=== PATIENT | male | born 1950 | race Caucasian/White ===

== ENCOUNTER 2022-04-13 05:15 | Emergency (ER) | payer MEDICARE, MEDICAID ==
[2022-04-13] MEDS: Lidocaine 1% 10 ML MDV INJECT ONE (05:49)
== END 2022-04-13 07:10 | disposition home or self-care (01) ==
LOC: VM.ED 05:15
DX: S01.81XA Laceration without foreign body of other part of head, initial encounter (principal); I13.0 Hypertensive heart and chronic kidney disease with heart failure and stage 1 through stage 4 chronic kidney disease, or unspecified chronic kidney disease; N18.9 Chronic kidney disease, unspecified; I50.9 Heart failure, unspecified; E78.00 Pure hypercholesterolemia, unspecified; Z79.899 Other long term (current) drug therapy; Z79.82 Long term (current) use of aspirin; W18.30XA Fall on same level, unspecified, initial encounter; Y92.002 Bathroom of unspecified non-institutional (private) residence as the place of occurrence of the external cause
CPT/HCPCS: 12015; 99282; 99284

== ENCOUNTER 2023-09-20 04:50 | Emergency (ER) | payer MEDICARE, MEDICAID ==
[2023-09-20] MEDS ORDERED: Sodium Chloride 0.9% 10 ML Syringe FLUSH PRN (05:15)
[2023-09-20 05:41] LABS: BASOPHILS PERCENT AUTO 0.2 % (0.2-1.2); EOSINOPHILS ABSOLUTE AUTO 0.2 x10^3/uL (0.0-0.5); EOSINOPHILS PERCENT AUTO 2.9 % (0.0-4.0); HEMOGLOBIN 14.3 g/dL (14.0-18.0); IMMATURE GRAN ABSOLUTE AUTO 0.01 x10^3/uL (0.00-0.07); LYMPHOCYTES ABSOLUTE AUTO 0.7 x10^3/uL (1.0-4.8); LYMPHOCYTES PERCENT AUTO 12.3 % (25.0-50.0); MEAN CORPUSCULAR HEMOGLOBIN 29.7 pg (26.0-32.0); MEAN CORPUSCULAR VOLUME 87.3 fL (78.0-93.0); MONOCYTES ABSOLUTE AUTO 0.7 x10^3/uL (0.0-0.8); MONOCYTES PERCENT AUTO 13.2 % (2.0-11.0); NEUTROPHILS PERCENT AUTO 71.2 % (50.0-80.0); PLATELET COUNT,PLT 147 x10^3/uL (130-400); RED BLOOD CELL COUNT 4.81 x10^6/uL (4.5-6.0); WHITE BLOOD CELL COUNT,WBC 5.6 x10^3/uL (4.0-10.0)
[2023-09-20 06:06] LABS: LACTIC ACID 1.2 mmol/L (0.4-2.0)
[2023-09-20 06:08] LABS: A/G RATIO 0.75; ALANINE AMINOTRANSFERASE,ALT 17 U/L (16-63); ALKALINE PHOSPHATASE 123 U/L (46-116); ASPARTATE AMNIOTRANSFERASE,AST 22 U/L (15-37); BILIRUBIN TOTAL 0.8 mg/dL (0.2-1.0); BLOOD UREA NITROGEN,BUN 15 mg/dL (7-18); CALCIUM 8.7 mg/dL (8.5-10.1); CARBON DIOXIDE,CO2 29 mmol/L (21-32); CHLORIDE,CL 101 mmol/L (98-107); CREATININE 1.3 mg/dL (0.70-1.30); GLUCOSE RANDOM 107 mg/dL (70-99); POTASSIUM,K 4.2 mmol/L (3.5-5.1); PRO B-TYPE NATRIUR PEPT,BNPPRO 1614 pg/mL (<=125); SODIUM,NA 138 mmol/L (136-145)
[2023-09-20 06:09] LABS: ANION GAP 12.2 mmol/L (5-15); ESTIMATED GFR 59 mL/min (>=60)
[2023-09-20 06:11] LABS: CORONAVIRUS COVID-19 NAA NEGATIVE (NEGATIVE)
[2023-09-20 06:12] LABS: INFLUENZA A NAA NEGATIVE (NEGATIVE); INFLUENZA B NAA NEGATIVE (NEGATIVE)
== END 2023-09-20 07:46 | disposition short-term general hospital (02) ==
LOC: VM.ED 04:50
DX: I13.0 Hypertensive heart and chronic kidney disease with heart failure and stage 1 through stage 4 chronic kidney disease, or unspecified chronic kidney disease (principal); I50.9 Heart failure, unspecified; N18.9 Chronic kidney disease, unspecified; J90 Pleural effusion, not elsewhere classified; R09.02 Hypoxemia; Z79.82 Long term (current) use of aspirin; Z79.899 Other long term (current) drug therapy; Z86.73 Personal history of transient ischemic attack (TIA), and cerebral infarction without residual deficits
CPT/HCPCS: 0240U; 36415; 71045; 80053; 83605; 83880; 84484; 85025; 94760; 99285; 99284

== ENCOUNTER 2025-01-24 09:16 | Emergency (ER) | payer MEDICARE, MEDICAID | END 2025-01-24 12:40 | LOC: VM.ED 09:16 | DX: M25.531 Pain in right wrist (principal); I11.0 Hypertensive heart disease with heart failure; I50.9 Heart failure, unspecified; E78.00 Pure hypercholesterolemia, unspecified; Z79.82 Long term (current) use of aspirin; Z79.899 Other long term (current) drug therapy | CPT/HCPCS: 73110-RT; 99284; 99285 ==

== ENCOUNTER 2025-03-15 15:34 | Inpatient (IN) | payer MEDICARE, MEDICAID ==
[2025-03-15] MEDS ORDERED: Ondansetron 4 MG/2 ML SDV IV PRN (16:07)
[2025-03-15] MEDS: Lactated Ringers 1,000 ML IV SCH ×2 (16:19→17:19)
[2025-03-16 06:18] LABS: APPEARANCE,URINE CLOUDY (CLEAR); GLUCOSE,URINE NEGATIVE (NEGATIVE); OCCULT BLOOD,URINE MODERATE (NEGATIVE)
[2025-03-16 06:46] LABS: BASOPHILS ABSOLUTE AUTO 0.0 x10^3/uL (0.0-0.2); BASOPHILS PERCENT AUTO 0.1 % (0.2-1.2); EOSINOPHILS ABSOLUTE AUTO 0.0 x10^3/uL (0.0-0.5); EOSINOPHILS PERCENT AUTO 0.3 % (0.0-4.0); IMMATURE GRAN ABSOLUTE AUTO 0.09 x10^3/uL (0.00-0.07); IMMATURE GRAN PERCENT AUTO 0.60 % (0.00-0.43); LYMPHOCYTES ABSOLUTE AUTO 0.7 x10^3/uL (1.0-4.8); LYMPHOCYTES PERCENT AUTO 4.7 % (25.0-50.0); MONOCYTES ABSOLUTE AUTO 1.2 x10^3/uL (0.0-0.8); MONOCYTES PERCENT AUTO 8.1 % (2.0-11.0); NEUTROPHILS ABSOLUTE AUTO 12.7 x10^3/uL (1.8-7.7); NEUTROPHILS PERCENT AUTO 86.2 % (50.0-80.0); PLATELET COUNT,PLT 162 x10^3/uL (130-400); RED BLOOD CELL COUNT 3.78 x10^6/uL (4.5-6.0); WHITE BLOOD CELL COUNT,WBC 14.8 x10^3/uL (4.0-10.0)
[2025-03-16 07:02] LABS: BLOOD UREA NITROGEN,BUN 27.0 mg/dL (7-18); CARBON DIOXIDE,CO2 29.0 mmol/L (21-32); CHLORIDE,CL 97.0 mmol/L (98-107); CREATININE 1.4 mg/dL (0.70-1.30); EST CRCL DRUG DOSING (CG) 51.58 mL/min; GLUCOSE RANDOM 99.0 mg/dL (70-99); POTASSIUM,K 3.6 mmol/L (3.5-5.1); SODIUM,NA 134.0 mmol/L (136-145)
[2025-03-16 07:03] LABS: ESTIMATED GFR 53.0 mL/min (>=60)
[2025-03-16 07:19] LABS: TSH ULTRASENSITIVE 1.182 uIU/mL (0.358-3.74)
[2025-03-16] MEDS: FLU (Fluad Triv) 25-26 (65UP)/MF59C/PF 45 MCG/0.5 ML Syringe IM ONE (08:58)
[2025-03-16] MEDS: Diltiazem 50 MG/10 ML SDV IVPUSH ONE (19:21)
[2025-03-16] MEDS: Miconazole 2% Top Powder 45 GM Container TOP SCH (20:06)
[2025-03-17 06:56] LABS: BASOPHILS ABSOLUTE AUTO 0.0 x10^3/uL (0.0-0.2); BASOPHILS PERCENT AUTO 0.3 % (0.2-1.2); EOSINOPHILS ABSOLUTE AUTO 0.3 x10^3/uL (0.0-0.5); EOSINOPHILS PERCENT AUTO 3.0 % (0.0-4.0); IMMATURE GRAN ABSOLUTE AUTO 0.05 x10^3/uL (0.00-0.07); IMMATURE GRAN PERCENT AUTO 0.40 % (0.00-0.43); LYMPHOCYTES ABSOLUTE AUTO 1.0 x10^3/uL (1.0-4.8); LYMPHOCYTES PERCENT AUTO 8.6 % (25.0-50.0); MONOCYTES ABSOLUTE AUTO 1.1 x10^3/uL (0.0-0.8); MONOCYTES PERCENT AUTO 9.5 % (2.0-11.0); NEUTROPHILS ABSOLUTE AUTO 8.8 x10^3/uL (1.8-7.7); NEUTROPHILS PERCENT AUTO 78.2 % (50.0-80.0); PLATELET COUNT,PLT 166 x10^3/uL (130-400); RED BLOOD CELL COUNT 3.80 x10^6/uL (4.5-6.0); WHITE BLOOD CELL COUNT,WBC 11.3 x10^3/uL (4.0-10.0)
[2025-03-17 07:12] LABS: BLOOD UREA NITROGEN,BUN 22.0 mg/dL (7-18); CARBON DIOXIDE,CO2 27.0 mmol/L (21-32); CHLORIDE,CL 99.0 mmol/L (98-107); CREATININE 1.2 mg/dL (0.70-1.30); EST CRCL DRUG DOSING (CG) 60.18 mL/min; GLUCOSE RANDOM 95.0 mg/dL (70-99); POTASSIUM,K 3.5 mmol/L (3.5-5.1); SODIUM,NA 134.0 mmol/L (136-145)
[2025-03-17 07:17] LABS: ESTIMATED GFR 64.0 mL/min (>=60)
[2025-03-17] MEDS: Cholecalciferol (Vitamin D3) 25 MCG Tab PO SCH (09:11)
[2025-03-18] MEDS: Sodium Chloride 0.9% 10 ML Syringe FLUSH PRN (00:12)
[2025-03-18 06:48] LABS: BASOPHILS ABSOLUTE AUTO 0.0 x10^3/uL (0.0-0.2); BASOPHILS PERCENT AUTO 0.2 % (0.2-1.2); EOSINOPHILS ABSOLUTE AUTO 0.3 x10^3/uL (0.0-0.5); EOSINOPHILS PERCENT AUTO 3.3 % (0.0-4.0); IMMATURE GRAN ABSOLUTE AUTO 0.05 x10^3/uL (0.00-0.07); IMMATURE GRAN PERCENT AUTO 0.50 % (0.00-0.43); LYMPHOCYTES ABSOLUTE AUTO 1.0 x10^3/uL (1.0-4.8); LYMPHOCYTES PERCENT AUTO 10.6 % (25.0-50.0); MONOCYTES ABSOLUTE AUTO 0.9 x10^3/uL (0.0-0.8); MONOCYTES PERCENT AUTO 8.8 % (2.0-11.0); NEUTROPHILS ABSOLUTE AUTO 7.5 x10^3/uL (1.8-7.7); NEUTROPHILS PERCENT AUTO 76.6 % (50.0-80.0); PLATELET COUNT,PLT 185 x10^3/uL (130-400); RED BLOOD CELL COUNT 4.16 x10^6/uL (4.5-6.0); WHITE BLOOD CELL COUNT,WBC 9.7 x10^3/uL (4.0-10.0)
[2025-03-18 06:58] LABS: BLOOD UREA NITROGEN,BUN 16.0 mg/dL (7-18); CARBON DIOXIDE,CO2 29.0 mmol/L (21-32); CHLORIDE,CL 101.0 mmol/L (98-107); CREATININE 1.2 mg/dL (0.70-1.30); EST CRCL DRUG DOSING (CG) 60.18 mL/min; GLUCOSE RANDOM 90.0 mg/dL (70-99); POTASSIUM,K 4.2 mmol/L (3.5-5.1); SODIUM,NA 136.0 mmol/L (136-145)
[2025-03-18 06:59] LABS: ESTIMATED GFR 64.0 mL/min (>=60)
[2025-03-19 07:18] LABS: BLOOD UREA NITROGEN,BUN 13 mg/dL (7-18); CARBON DIOXIDE,CO2 28 mmol/L (21-32); CHLORIDE,CL 102 mmol/L (98-107); CREATININE 1.1 mg/dL (0.70-1.30); GLUCOSE RANDOM 94 mg/dL (70-99); POTASSIUM,K 3.7 mmol/L (3.5-5.1); SODIUM,NA 137 mmol/L (136-145)
[2025-03-19 07:20] LABS: ESTIMATED GFR 71 mL/min (>=60)
[2025-03-19 07:21] LABS: BASOPHILS ABSOLUTE AUTO 0.0 x10^3/uL (0.0-0.2); BASOPHILS PERCENT AUTO 0.3 % (0.2-1.2); EOSINOPHILS ABSOLUTE AUTO 0.3 x10^3/uL (0.0-0.5); EOSINOPHILS PERCENT AUTO 3.6 % (0.0-4.0); IMMATURE GRAN ABSOLUTE AUTO 0.04 x10^3/uL (0.00-0.07); IMMATURE GRAN PERCENT AUTO 0.40 % (0.00-0.43); LYMPHOCYTES ABSOLUTE AUTO 1.2 x10^3/uL (1.0-4.8); LYMPHOCYTES PERCENT AUTO 12.7 % (25.0-50.0); MONOCYTES ABSOLUTE AUTO 0.9 x10^3/uL (0.0-0.8); MONOCYTES PERCENT AUTO 9.8 % (2.0-11.0); NEUTROPHILS ABSOLUTE AUTO 6.7 x10^3/uL (1.8-7.7); NEUTROPHILS PERCENT AUTO 73.2 % (50.0-80.0); PLATELET COUNT,PLT 227 x10^3/uL (130-400); RED BLOOD CELL COUNT 4.12 x10^6/uL (4.5-6.0); WHITE BLOOD CELL COUNT,WBC 9.1 x10^3/uL (4.0-10.0)
== END 2025-03-19 13:00 | DRG 871 ==
LOC: VM.MS 15:34
PROVIDERS: ADMIT Internal Medicine; ATTEND Family Medicine
DX: A41.9 Sepsis, unspecified organism (principal); J96.01 Acute respiratory failure with hypoxia; N17.9 Acute kidney failure, unspecified; I13.0 Hypertensive heart and chronic kidney disease with heart failure and stage 1 through stage 4 chronic kidney disease, or unspecified chronic kidney disease; I50.32 Chronic diastolic (congestive) heart failure; L03.116 Cellulitis of left lower limb; F01.53 Vascular dementia, unspecified severity, with mood disturbance; E87.1 Hypo-osmolality and hyponatremia; Z66 Do not resuscitate; R65.20 Severe sepsis without septic shock; I25.10 Atherosclerotic heart disease of native coronary artery without angina pectoris; I48.0 Paroxysmal atrial fibrillation; Z96.641 Presence of right artificial hip joint; D63.1 Anemia in chronic kidney disease; N18.31 Chronic kidney disease, stage 3a; Z79.82 Long term (current) use of aspirin; Z79.899 Other long term (current) drug therapy; Z98.890 Other specified postprocedural states; Z86.73 Personal history of transient ischemic attack (TIA), and cerebral infarction without residual deficits; Z95.1 Presence of aortocoronary bypass graft
CPT/HCPCS: 36415; 51798; 80048; 81001; 82947; 83605; 83735; 83880; 84443; 84484; 85025; 86140; 87070; 87426-QW; 93005; 94640; 97110-GP; 97116-GP; 97161-GP; 97530-GP; A9270-GY; J1160; J1920; J2543; J3490; J7030; J7120

== ENCOUNTER 2025-04-09 03:41 | Inpatient (IN) | payer MEDICARE, MEDICAID ==
[2025-04-09 04:35] LABS: BASOPHILS ABSOLUTE AUTO 0.0 x10^3/uL (0.0-0.2); BASOPHILS PERCENT AUTO 0.2 % (0.2-1.2); EOSINOPHILS ABSOLUTE AUTO 0.3 x10^3/uL (0.0-0.5); EOSINOPHILS PERCENT AUTO 3.4 % (0.0-4.0); IMMATURE GRAN ABSOLUTE AUTO 0.01 x10^3/uL (0.00-0.07); IMMATURE GRAN PERCENT AUTO 0.10 % (0.00-0.43); LYMPHOCYTES ABSOLUTE AUTO 1.7 x10^3/uL (1.0-4.8); LYMPHOCYTES PERCENT AUTO 19.7 % (25.0-50.0); MONOCYTES ABSOLUTE AUTO 0.9 x10^3/uL (0.0-0.8); MONOCYTES PERCENT AUTO 10.7 % (2.0-11.0); NEUTROPHILS ABSOLUTE AUTO 5.8 x10^3/uL (1.8-7.7); NEUTROPHILS PERCENT AUTO 65.9 % (50.0-80.0); PLATELET COUNT,PLT 178 x10^3/uL (130-400); RED BLOOD CELL COUNT 4.52 x10^6/uL (4.5-6.0); WHITE BLOOD CELL COUNT,WBC 8.8 x10^3/uL (4.0-10.0)
[2025-04-09] MEDS: Metoprolol Tartrate 5 MG/5 ML SDV IVPUSH ONE (04:39)
[2025-04-09 05:03] LABS: A/G RATIO 0.71; ALANINE AMINOTRANSFERASE,ALT 37.0 U/L (16-63); ASPARTATE AMNIOTRANSFERASE,AST 25.0 U/L (15-37); BILIRUBIN TOTAL 1.4 mg/dL (0.2-1.0); BLOOD UREA NITROGEN,BUN 25.0 mg/dL (7-18); CARBON DIOXIDE,CO2 32.0 mmol/L (21-32); CHLORIDE,CL 101.0 mmol/L (98-107); CREATINE KINASE,CK 132.0 U/L (39-308); CREATININE 1.7 mg/dL (0.70-1.30); EST CRCL DRUG DOSING (CG) 42.48 mL/min; ESTIMATED GFR 42.0 mL/min (>=60); GLUCOSE RANDOM 97.0 mg/dL (70-99); POTASSIUM,K 4.2 mmol/L (3.5-5.1); PROTEIN TOTAL,TP 7.2 g/dL (6.4-8.2); SODIUM,NA 142.0 mmol/L (136-145)
[2025-04-09] MEDS: Diltiazem 50 MG/10 ML SDV IVPUSH ONE (05:06)
[2025-04-09] MEDS ORDERED: Triamcinolone Acetonide 0.1% Crm 15 GM Tube TOP PRN (08:50)
[2025-04-09] MEDS: Cholecalciferol (Vitamin D3) 25 MCG Tab PO SCH (10:20)
[2025-04-09] MEDS: Miconazole 2% Top Powder 45 GM Container TOP SCH (10:21)
[2025-04-09] MEDS: Potassium Chloride 20 MEQ Tab.ER PO SCH (10:24)
[2025-04-09 11:21] LABS: LACTIC ACID 1.0 mmol/L (0.4-2.0)
[2025-04-09 14:02] LABS: APPEARANCE,URINE CLEAR (CLEAR); GLUCOSE,URINE NEGATIVE (NEGATIVE); OCCULT BLOOD,URINE TRACE-INTACT (NEGATIVE)
[2025-04-09 14:11] LABS: SQUAMOUS EPITHELIAL CELLS,UR RARE /HPF (NOT SEEN)
[2025-04-10 07:43] LABS: PLATELET COUNT,PLT 155.0 x10^3/uL (130-400); RED BLOOD CELL COUNT 4.26 x10^6/uL (4.5-6.0); WHITE BLOOD CELL COUNT,WBC 7.1 x10^3/uL (4.0-10.0)
[2025-04-10 07:51] LABS: A/G RATIO 0.67; ALANINE AMINOTRANSFERASE,ALT 25.0 U/L (16-63); ASPARTATE AMNIOTRANSFERASE,AST 27.0 U/L (15-37); BILIRUBIN TOTAL 1.5 mg/dL (0.2-1.0); BLOOD UREA NITROGEN,BUN 22.0 mg/dL (7-18); CARBON DIOXIDE,CO2 30.0 mmol/L (21-32); CHLORIDE,CL 103.0 mmol/L (98-107); CREATININE 1.3 mg/dL (0.70-1.30); EST CRCL DRUG DOSING (CG) 55.55 mL/min; GLUCOSE RANDOM 91.0 mg/dL (70-99); POTASSIUM,K 4.3 mmol/L (3.5-5.1); PROTEIN TOTAL,TP 6.5 g/dL (6.4-8.2); SODIUM,NA 140.0 mmol/L (136-145)
[2025-04-10 07:58] LABS: ESTIMATED GFR 58.0 mL/min (>=60)
[2025-04-11 07:35] LABS: PLATELET COUNT,PLT 151.0 x10^3/uL (130-400); RED BLOOD CELL COUNT 3.91 x10^6/uL (4.5-6.0); WHITE BLOOD CELL COUNT,WBC 7.2 x10^3/uL (4.0-10.0)
[2025-04-11 07:51] LABS: A/G RATIO 0.71; ALANINE AMINOTRANSFERASE,ALT 34.0 U/L (16-63); ASPARTATE AMNIOTRANSFERASE,AST 27.0 U/L (15-37); BILIRUBIN TOTAL 1.3 mg/dL (0.2-1.0); BLOOD UREA NITROGEN,BUN 25.0 mg/dL (7-18); CARBON DIOXIDE,CO2 32.0 mmol/L (21-32); CHLORIDE,CL 101.0 mmol/L (98-107); CREATININE 1.8 mg/dL (0.70-1.30); EST CRCL DRUG DOSING (CG) 40.12 mL/min; ESTIMATED GFR 39.0 mL/min (>=60); GLUCOSE RANDOM 87.0 mg/dL (70-99); POTASSIUM,K 4.1 mmol/L (3.5-5.1); PROTEIN TOTAL,TP 6.5 g/dL (6.4-8.2); SODIUM,NA 140.0 mmol/L (136-145)
[2025-04-11 15:53] LABS: APPEARANCE,URINE CLEAR (CLEAR); GLUCOSE,URINE NEGATIVE (NEGATIVE); OCCULT BLOOD,URINE TRACE-INTACT (NEGATIVE)
[2025-04-11 16:01] LABS: SQUAMOUS EPITHELIAL CELLS,UR RARE /HPF (NOT SEEN)
[2025-04-12 06:52] LABS: PLATELET COUNT,PLT 146.0 x10^3/uL (130-400); RED BLOOD CELL COUNT 3.73 x10^6/uL (4.5-6.0); WHITE BLOOD CELL COUNT,WBC 7.0 x10^3/uL (4.0-10.0)
[2025-04-12 07:19] LABS: A/G RATIO 0.7; ALANINE AMINOTRANSFERASE,ALT 32.0 U/L (16-63); ASPARTATE AMNIOTRANSFERASE,AST 24.0 U/L (15-37); BILIRUBIN TOTAL 1.1 mg/dL (0.2-1.0); BLOOD UREA NITROGEN,BUN 25.0 mg/dL (7-18); CARBON DIOXIDE,CO2 31.0 mmol/L (21-32); CHLORIDE,CL 101.0 mmol/L (98-107); CREATININE 1.4 mg/dL (0.70-1.30); EST CRCL DRUG DOSING (CG) 51.58 mL/min; GLUCOSE RANDOM 108.0 mg/dL (70-99); POTASSIUM,K 4.2 mmol/L (3.5-5.1); PROTEIN TOTAL,TP 6.3 g/dL (6.4-8.2); SODIUM,NA 140.0 mmol/L (136-145)
[2025-04-12 07:21] LABS: ESTIMATED GFR 53.0 mL/min (>=60)
[2025-04-12] MEDS: Arformoterol 15 MCG/2 ML Neb Soln NEB SCH (09:07)
[2025-04-13 06:44] LABS: BASOPHILS ABSOLUTE AUTO 0.0 x10^3/uL (0.0-0.2); BASOPHILS PERCENT AUTO 0.1 % (0.2-1.2); EOSINOPHILS ABSOLUTE AUTO 0.0 x10^3/uL (0.0-0.5); EOSINOPHILS PERCENT AUTO 0.3 % (0.0-4.0); IMMATURE GRAN ABSOLUTE AUTO 0.02 x10^3/uL (0.00-0.07); IMMATURE GRAN PERCENT AUTO 0.20 % (0.00-0.43); LYMPHOCYTES ABSOLUTE AUTO 1.0 x10^3/uL (1.0-4.8); LYMPHOCYTES PERCENT AUTO 9.8 % (25.0-50.0); MONOCYTES ABSOLUTE AUTO 1.0 x10^3/uL (0.0-0.8); MONOCYTES PERCENT AUTO 9.8 % (2.0-11.0); NEUTROPHILS ABSOLUTE AUTO 8.2 x10^3/uL (1.8-7.7); NEUTROPHILS PERCENT AUTO 79.8 % (50.0-80.0); PLATELET COUNT,PLT 180 x10^3/uL (130-400); RED BLOOD CELL COUNT 4.38 x10^6/uL (4.5-6.0); WHITE BLOOD CELL COUNT,WBC 10.2 x10^3/uL (4.0-10.0)
[2025-04-13 06:55] LABS: BLOOD UREA NITROGEN,BUN 28.0 mg/dL (7-18); CARBON DIOXIDE,CO2 32.0 mmol/L (21-32); CHLORIDE,CL 100.0 mmol/L (98-107); CREATININE 1.5 mg/dL (0.70-1.30); EST CRCL DRUG DOSING (CG) 48.14 mL/min; GLUCOSE RANDOM 100.0 mg/dL (70-99); POTASSIUM,K 3.7 mmol/L (3.5-5.1); SODIUM,NA 141.0 mmol/L (136-145)
[2025-04-13 06:56] LABS: ESTIMATED GFR 49.0 mL/min (>=60)
[2025-04-13 09:03] LABS: A/G RATIO 0.71; ALANINE AMINOTRANSFERASE,ALT 38.0 U/L (16-63); ASPARTATE AMNIOTRANSFERASE,AST 25.0 U/L (15-37); BILIRUBIN DIRECT 0.34 mg/dL (0.00-0.20); BILIRUBIN INDIRECT 0.66; BILIRUBIN TOTAL 1.0 mg/dL (0.2-1.0); PROTEIN TOTAL,TP 7.2 g/dL (6.4-8.2)
[2025-04-14 06:37] LABS: BASOPHILS ABSOLUTE AUTO 0.0 x10^3/uL (0.0-0.2); BASOPHILS PERCENT AUTO 0.2 % (0.2-1.2); EOSINOPHILS ABSOLUTE AUTO 0.2 x10^3/uL (0.0-0.5); EOSINOPHILS PERCENT AUTO 1.8 % (0.0-4.0); IMMATURE GRAN ABSOLUTE AUTO 0.01 x10^3/uL (0.00-0.07); IMMATURE GRAN PERCENT AUTO 0.10 % (0.00-0.43); LYMPHOCYTES ABSOLUTE AUTO 1.4 x10^3/uL (1.0-4.8); LYMPHOCYTES PERCENT AUTO 16.1 % (25.0-50.0); MONOCYTES ABSOLUTE AUTO 1.0 x10^3/uL (0.0-0.8); MONOCYTES PERCENT AUTO 11.2 % (2.0-11.0); NEUTROPHILS ABSOLUTE AUTO 6.1 x10^3/uL (1.8-7.7); NEUTROPHILS PERCENT AUTO 70.6 % (50.0-80.0); PLATELET COUNT,PLT 155 x10^3/uL (130-400); RED BLOOD CELL COUNT 4.04 x10^6/uL (4.5-6.0); WHITE BLOOD CELL COUNT,WBC 8.7 x10^3/uL (4.0-10.0)
[2025-04-14 06:59] LABS: A/G RATIO 0.7; ALANINE AMINOTRANSFERASE,ALT 30.0 U/L (16-63); ASPARTATE AMNIOTRANSFERASE,AST 20.0 U/L (15-37); BILIRUBIN TOTAL 1.2 mg/dL (0.2-1.0); BLOOD UREA NITROGEN,BUN 27.0 mg/dL (7-18); CARBON DIOXIDE,CO2 32.0 mmol/L (21-32); CHLORIDE,CL 101.0 mmol/L (98-107); CREATININE 1.3 mg/dL (0.70-1.30); EST CRCL DRUG DOSING (CG) 55.55 mL/min; ESTIMATED GFR 58.0 mL/min (>=60); GLUCOSE RANDOM 83.0 mg/dL (70-99); POTASSIUM,K 4.1 mmol/L (3.5-5.1); PROTEIN TOTAL,TP 6.3 g/dL (6.4-8.2); SODIUM,NA 140.0 mmol/L (136-145)
== END 2025-04-14 10:55 | DRG 309 ==
LOC: VM.ED 03:41 → VM.MS 05:49
PROVIDERS: ADMIT Family Medicine; ATTEND Family Medicine
DX: I48.91 Unspecified atrial fibrillation (principal); E46 Unspecified protein-calorie malnutrition; I13.0 Hypertensive heart and chronic kidney disease with heart failure and stage 1 through stage 4 chronic kidney disease, or unspecified chronic kidney disease; I50.32 Chronic diastolic (congestive) heart failure; J44.1 Chronic obstructive pulmonary disease with (acute) exacerbation; N17.9 Acute kidney failure, unspecified; L03.116 Cellulitis of left lower limb; L03.115 Cellulitis of right lower limb; J90 Pleural effusion, not elsewhere classified; F01.53 Vascular dementia, unspecified severity, with mood disturbance; F01.518 Vascular dementia, unspecified severity, with other behavioral disturbance; Z66 Do not resuscitate; E87.6 Hypokalemia; I25.10 Atherosclerotic heart disease of native coronary artery without angina pectoris; I87.8 Other specified disorders of veins; E11.22 Type 2 diabetes mellitus with diabetic chronic kidney disease; D63.1 Anemia in chronic kidney disease; B36.9 Superficial mycosis, unspecified; M81.0 Age-related osteoporosis without current pathological fracture; D50.9 Iron deficiency anemia, unspecified; N18.32 Chronic kidney disease, stage 3b; I48.92 Unspecified atrial flutter; Z79.82 Long term (current) use of aspirin; Z79.1 Long term (current) use of non-steroidal anti-inflammatories (NSAID); Z79.899 Other long term (current) drug therapy; Z68.37 Body mass index [BMI] 37.0-37.9, adult; Z87.891 Personal history of nicotine dependence; I25.2 Old myocardial infarction; Z95.1 Presence of aortocoronary bypass graft; Z86.711 Personal history of pulmonary embolism; Z87.09 Personal history of other diseases of the respiratory system; Z86.73 Personal history of transient ischemic attack (TIA), and cerebral infarction without residual deficits
CPT/HCPCS: 36415; 71045; 80048; 80053; 80076; 81001; 82550; 83605; 83690; 83880; 84484; 85025; 85027; 87040; 87070; 93005; 93010; 94640; 94760; 96365; 96374; 96375; 97161-GP; 99232-GT; 99233-GT; 99284; 99285-25; A9270-GY; J0616; J3490; J7030; J7512